=== PATIENT | male | born 1995 | race Hispanic/Latino ===

== ENCOUNTER 2022-06-20 07:01 | Emergency (ER) | payer OTHER ==
[~2022-06-20] VITALS: Ht 175.3 cm; Wt 63.6 kg
[2022-06-20] MEDS ORDERED: IBUPROFEN 800 MG TAB PO ONE (11:20)
[2022-06-20] MEDS ORDERED: BENZ1LOZ9 PO (11:44)
[2022-06-20 12:05] VITALS: BP 99/63
== END 2022-06-20 12:07 | disposition home or self-care (01) ==
LOC: M ED 07:01
DX: J09.X2 Influenza due to identified novel influenza A virus with other respiratory manifestations (principal); J06.9 Acute upper respiratory infection, unspecified; B34.9 Viral infection, unspecified; F10.10 Alcohol abuse, uncomplicated; Z91.030 Bee allergy status; Z88.4 Allergy status to anesthetic agent

== ENCOUNTER 2025-03-26 12:14 | Emergency (ER) | payer OTHER ==
[~2025-03-26] VITALS: Ht 172.7 cm; Wt 69.0 kg
[~2025-03-26 12:14] MED LIST: BENZ1LOZ9 PO
[2025-03-26] MEDS: IBUPROFEN 600 MG TAB PO ONE (14:18)
[2025-03-26] MEDS ORDERED: METH-1164 PO (15:35)
[2025-03-26 15:50] VITALS: BP 110/55; TEMP 97.3; O2SAT 100
== END 2025-03-26 15:52 | disposition home or self-care (01) ==
LOC: M ED 12:14
DX: M54.50 Low back pain, unspecified (principal); M25.561 Pain in right knee; V23.41XA Electric (assisted) bicycle driver injured in collision with car, pick-up truck or van in traffic accident, initial encounter; Y92.410 Unspecified street and highway as the place of occurrence of the external cause; Y93.89 Activity, other specified; Y99.9 Unspecified external cause status; Z91.030 Bee allergy status; Z79.899 Other long term (current) drug therapy